=== PATIENT | female | born 1970 | race American Indian/Alaskan Native ===

== ENCOUNTER 2019-12-30 08:38 | Emergency (ER) | payer SELFPAY ==
[2019-12-30 09:46] VITALS: BP 134/90
--- NOTE | 2019-12-30 10:02 | Emergency Department Report ---
Chief Complaint: Upper Respiratory Infection Stated Complaint: BAD COUGH Time Seen by Provider: 12/30/19 09:52 - HPI History of Present Illness: Patient is a 49-year-old female presents the emergency room with complaints of cold-like symptoms that began 2 weeks ago but states that they self resolved. She states that the only thing she continues to have is a persistent dry cough. She denies any fever, rhinorrhea, congestion, ear pain, nausea, vomiting, diarrhea, productive cough. She states that she has tried to take Mucinex, TheraFlu, Jessica-[place] but still has a dry cough. She denies any past medical history allergies to medications. She is a non-smoker. vitals are normal ROS: all systems reviewed and are negative except as documented in chart PE: Nontoxic appearing, no acute distress Normal appearance of the eyes, EOMI, PERRL Moist mucous membranes normal TMs and canals bilaterally, normal oropharynx, no sinus ttp bilaterally Regular heart rate and rhythm, no murmurs, no gallops, no rubs Breath sounds are clear bilaterally, no wheezing, no rales, no rhonchi Very mild tenderness to palpation of the left anterior ribs, no ecchymosis, no edema, no crepitus, no deformity Alert and oriented x4, no focal neuro deficits Skin is warm, dry, intact No clinical signs or symptoms of pneumonia or bacterial infection low risk based on wells criteria for PE advised pt to Please take Zyrtec or Claritin [id number]. May use a humidifier. May do warm salt water gargles and nasal washes. Please use Flonase nasal spray [id number]. Follow-up with your primary care doctor in the next 3 to 5 days to be reexamined. Return to the emergency room for any new or worsening symptoms including but not limited to fever, coughing up white/brown mucus, difficulty breathing, etc. Patient is presenting with a nonmedical emergency at this time, medical screening examination performed and there is no threat to life or limb at this time pt will be referred to her PCP discussed strict return precautions with pt - Exam Vital Signs: Vital Signs 12/30/19 09:45 Temperature 98.9 F Pulse Rate 80 Respiratory 16 Rate Blood Pressure 134/90 [Left] O2 Sat by Pulse 98 Oximetry MSE screening note: Focused history and physical exam performed. ED Disposition for MSE Clinical Impression: Persistent dry cough Disposition: MED SCREENING EXAM-LEFT Is pt being admited?: No Does the pt Need Aspirin: No Condition: Stable Additional Instructions: Please take Zyrtec or Claritin [id number]. May use a humidifier. May do warm salt water gargles and nasal washes. Please use Flonase nasal spray [id number]. Follow-up with your primary care doctor in the next 3 to 5 days to be reexamined. Return to the emergency room for any new or worsening symptoms including but not limited to fever, coughing up white/brown mucus, difficulty breathing, etc. Referrals: your, primary care doctor [Other] - 3-5 Days Time of Disposition: 10:00 Print Language: NAURUAN
== END 2019-12-30 10:09 | disposition left against medical advice (07) ==
LOC: ED 08:38
DX: R05 Cough (principal)